=== PATIENT | female | born 1980 | race Caucasian/White ===

== ENCOUNTER 2016-09-11 09:52 | Emergency (ER) | payer MEDICAID ==
[2016-09-11] MEDS ORDERED: Sodium Chloride 0.9% 1000 ML 1,000 ML IV SCH (10:00)
[2016-09-11] MEDS ORDERED: Reglan 10 MG/2 ML IV ONE (10:00)
[2016-09-11] MEDS ORDERED: BENADRYL 50 MG/ML IV ONE (10:00)
[2016-09-11] MEDS ORDERED: TORAdol 30 mg Injection IV ONE (10:00)
--- NOTE | 2016-09-11 10:05 | ERPHSYRPT ---
- History of Present Illness Time Seen by Provider: 09/11/16 09:54 Source: patient Physician History: CC: headache/chest ache Hx: 35 y/o patient has had headache past 2-3 days, better today. She had nausea and photophobia and stayed in a dark room. No N/T/W. CISNEROS some better today. She also has some aching in left chest anterior like a bruise, although had no injury. She was concerned about the chest aching so came to ER. She had C- Section 6 months ago and is bottle feeding. She has high blood pressure and takes lisinopril. No hx of recent travel, [place], injury, stroke, blood clots. Timing/Duration: day(s) (2-3) Severity: moderate Allergies/Adverse Reactions: amoxicillin trihydrate [From Augmentin] Allergy (Severe, Verified 09/11/16 10:07 ) Hives penicillin Allergy (Severe, Verified 09/11/16 10:07) Hives potassium clavulanate [From Augmentin] Allergy (Severe, Verified 09/11/16 10:07) Hives sulfamethoxazole [From Bactrim] Allergy (Severe, Verified 09/11/16 10:07) Hives trimethoprim [From Bactrim] Allergy (Severe, Verified 09/11/16 10:07) Hives Home Medications: Escitalopram Oxalate [Lexapro] 20 mg PO DAILY 09/11/16 [History] Lisinopril 10 mg [Zestril 10 MG] 10 mg PO DAILY 09/11/16 [History] Quetiapine Fumarate [Seroquel] 100 mg PO HS 09/11/16 [History] Hx Tetanus, Diphtheria Vaccination/Date Given: Yes (up to date) Hx Influenza Vaccination/Date Given: No Hx Pneumococcal Vaccination/Date Given: No - Review of Systems Constitutional: No Fever, No Chills Eyes: Photophobia, No Vision Changes Ears, Nose, & Throat: No Symptoms Respiratory: No Symptoms Cardiac: Chest Pain (aching left), No Edema, No Syncope Abdominal/Gastrointestinal: Nausea, No Vomiting Musculoskeletal: No Back Pain, No Neck Pain, No Joint Pain Skin: No Rash Neurological: Headache, No Dizziness, No Focal Weakness, No Parasthesia All Other Systems: Reviewed and Negative - Past Medical History Pertinent Past Medical History: Yes Neurological History: No Pertinent History ENT History: No Pertinent History Cardiac History: No Pertinent History Respiratory History: Asthma Endocrine Medical History: No Pertinent History Musculoskeletal History: No Pertinent History GI Medical History: No Pertinent History History: No Pertinent History Psycho-Social History: No Pertinent History Female Reproductive Disorders: Endometriosis, Other Other Medical History: Polycystic Ovarian syndrome - Past Surgical History Past Surgical History: Yes Neuro Surgical History: No Pertinent History Cardiac: No Pertinent History Respiratory: No Pertinent History Gastrointestinal: No Pertinent History Genitourinary: No Pertinent History Musculoskeletal: No Pertinent History Female Surgical History: No Pertinent History, Section Other Surgical History: Laparoscopy. Ovarian Cyst - Social History Smoking Status: Never smoker Exposure to second hand smoke: No Drug Use: none Patient Lives Alone: No - Nursing Vital Signs Nursing Vital Signs: Initial Vital Signs Temperature 98.0 F Temperature Source Oral Pulse Rate [Right Radial] 80 Pulse Rate 85 Respiratory Rate 20 Blood Pressure [Right Arm] 130/60 Pain Intensity 0 - Physical Exam General Appearance: alert, obese, other (pleasant lady) Eye Exam: PERRL/EOMI Ears, Nose, Throat Exam: normal ENT inspection, moist mucous membranes Neck Exam: normal inspection, non-tender, supple Respiratory Exam: normal breath sounds, lungs clear Cardiovascular Exam: regular rate/rhythm Gastrointestinal/Abdomen Exam: soft, No tenderness, No distention Back Exam: normal inspection Extremity Exam: normal inspection, normal range of motion Neurologic Exam: alert, oriented x 3, cooperative, fireperson II-XII nml as tested, normal mood/affect, nml cerebellar function, sensation nml, No motor deficits Skin Exam: warm, dry, No rash - Course Nursing assessment & vital signs reviewed: Yes EKG Interpreted by Me: RATE (80), Sinus Rhythm, NORMAL AXIS, NORMAL INTERVALS ( QTc 441), NORMAL QRS, NORMAL ST-T - Radiology Exams cxr X-ray Interpretation: Discussed w/ radiologist, Negative Ordered Tests: Active Orders 24 hr Category Date Time Status EKG-ER Only STAT Care 09/11/16 10:00 Active IV Insertion STAT Care 09/11/16 10:00 Active CHEST 2 VIEWS (PA AND LAT) Stat Exams 09/11/16 10:00 Completed CBC W DIFF Stat Lab 09/11/16 10:30 Completed CMP Stat Lab 09/11/16 10:30 Completed D-DIMER QUANTITATION Stat Lab 09/11/16 10:30 Completed HCG QUALITATIVE,SERUM Stat Lab 09/11/16 10:30 Completed TROPONIN Stat Lab 09/11/16 10:30 Completed Medication Summary Generic Name Dose Route Start Last Admin Trade Name Justyn PRN Reason Stop Dose Admin Sodium Chloride 1,000 mls @ 100 mls/hr 09/11/16 10:00 09/11/16 10:14 Sodium Chloride 0.9% 1000 Ml IV 10/11/16 09:59 100 mls/hr .Q10H SHELBIE Administration Discontinued Medications Generic Name Dose Route Start Last Admin Trade Name Justyn PRN Reason Stop Dose Admin Diphenhydramine HCl 25 mg 09/11/16 10:00 09/11/16 10:15 Benadryl 50 Mg/Ml IV 09/11/16 10:01 25 mg STAT ONE Administration Diphenhydramine HCl Confirm 09/11/16 10:12 Benadryl 50 Mg/Ml Administered 09/11/16 10:13 Dose 50 mg .ROUTE .STK-MED ONE Ketorolac Tromethamine 30 mg 09/11/16 10:00 09/11/16 10:17 Toradol 30 Mg Injection IV 09/11/16 10:01 30 mg STAT ONE Administration Ketorolac Tromethamine Confirm 09/11/16 10:12 Toradol 30 Mg Injection Administered 09/11/16 10:13 Dose 30 mg .ROUTE .STK-MED ONE Metoclopramide HCl 10 mg 09/11/16 10:00 09/11/16 10:16 Reglan 10 Mg/2 Ml IV 09/11/16 10:01 10 mg STAT ONE Administration Metoclopramide HCl Confirm 09/11/16 10:12 Reglan 10 Mg/2 Ml Administered 09/11/16 10:13 Dose 10 mg .ROUTE .STK-MED ONE Lab/Rad Data: Laboratory Result Diagrams 09/11/16 10:30 09/11/16 10:30 Laboratory Results 09/11/16 09/11/16 09/11/16 Range/Units 10:30 10:30 10:30 WBC (4.0-10.5) K/mm3 RBC (4.1-5.4) M/mm3 Hgb (12.0-16.0) gm/dl Hct (35-47) % MCV (78-100) fl MCH (26-32) pg MCHC (32-36) g/dl RDW (11.5-14.0) % Plt Count (150-450) K/mm3 MPV (6-9.5) fl Gran % (36.0-66.0) % Lymphocytes % (24.0-44.0) % Monocytes % (0.0-12.0) % Eosinophils % (0.00-5.0) % Basophils % (0.0-0.4) % Basophils # (0-0.4) D-Dimer 242.66 (0.00-500.00) ng/mL Sodium 141 (136-145) mEq/L Potassium 3.9 (3.5-5.1) mEq/L Chloride 106 (98-107) mEq/L Carbon Dioxide 25.3 (21-32) mEq/L Anion Gap 13.8 (5-15) MEQ/L BUN 11 (9-20) mg/dL Creatinine 0.67 (0.55-1.30) mg/dl Estimated GFR > 60 ML/MIN Glucose 121 H (70-110) MG/DL Calcium 8.7 (8.5-10.1) mg/dL Total Bilirubin 0.30 (0.2-1.0) mg/dL AST 29 (15-37) U/L ALT 25 (12-78) U/L Alkaline Phosphatase 48 (46-116) U/L Troponin I < 0.017 (0.000-0.056) ng/ml Serum Total Protein 6.8 (6.4-8.2) gm/dL Albumin 3.1 L (3.4-5.0) g/dL Serum , Qual NEGATIVE (Negative) 09/11/16 Range/Units 10:30 WBC 7.4 (4.0-10.5) K/mm3 RBC 4.48 (4.1-5.4) M/mm3 Hgb 12.6 (12.0-16.0) gm/dl Hct 39.2 (35-47) % MCV 87.5 (78-100) fl MCH 28.1 (26-32) pg MCHC 32.1 (32-36) g/dl RDW 14.4 H (11.5-14.0) % Plt Count 206 (150-450) K/mm3 MPV 9.7 H (6-9.5) fl Gran % 56.1 (36.0-66.0) % Lymphocytes % 31.3 (24.0-44.0) % Monocytes % 6.1 (0.0-12.0) % Eosinophils % 6.1 H (0.00-5.0) % Basophils % 0.4 (0.0-0.4) % Basophils # 0.03 (0-0.4) D-Dimer (0.00-500.00) ng/mL Sodium (136-145) mEq/L Potassium (3.5-5.1) mEq/L Chloride (98-107) mEq/L Carbon Dioxide (21-32) mEq/L Anion Gap (5-15) MEQ/L BUN (9-20) mg/dL Creatinine (0.55-1.30) mg/dl Estimated GFR ML/MIN Glucose (70-110) MG/DL Calcium (8.5-10.1) mg/dL Total Bilirubin (0.2-1.0) mg/dL AST (15-37) U/L ALT (12-78) U/L Alkaline Phosphatase (46-116) U/L Troponin I (0.000-0.056) ng/ml Serum Total Protein (6.4-8.2) gm/dL Albumin (3.4-5.0) g/dL Serum , Qual (Negative) - Progress Progress Note: 09/11/16 11:39 Pt stable. Meds helped headache. She forgot about the chest ache. She is improved. She ambulated in hallway. PERC and d-dimer neg. Low risk Heart Score. Will release to follow up this week with Dr Rodriguez. Counseled pt/family regarding: lab results, diagnosis, need for follow-up, rad results - Departure Time of Disposition: 11:40 Departure Disposition: Home Clinical Impression: Headache, Chest pain Condition: Stable Critical Care Time: No Referrals: MICHEL RODRIGUEZ [Primary Care Provider] - 09/14/16 11:00 am Instructions: Atypical Chest Pain, Headache Additional Instructions: Rest today, sip fluids, no driving. Return for problems or concerns. Follow up with Dr Rodriguez at 11AM Saturday.
[2016-09-11] MEDS ORDERED: BENADRYL 50 MG/ML ONE (10:12)
[2016-09-11] MEDS ORDERED: TORAdol 30 mg Injection ONE (10:12)
[2016-09-11] MEDS ORDERED: Reglan 10 MG/2 ML ONE (10:12)
[2016-09-11] MEDS ORDERED: Sodium Chloride 0.9% 1000 ML 1,000 ML ONE (10:12)
[2016-09-11 10:35] LABS: BASOPHIL % 0.4 % (0.0-0.4); Eosinophil % 6.1 % (0.00-5.0); Granulocytes % 56.1 % (36.0-66.0); Lymphocytes % 31.3 % (24.0-44.0); Mean Cell Volume 87.5 fl (78-100); Mean Corpuscular Hemoglobin 28.1 pg (26-32); Mean Platelet Volume 9.7 fl (6-9.5); Monocytes % 6.1 % (0.0-12.0); Platelet Count 206 K/mm3 (150-450); Red Blood Count 4.48 M/mm3 (4.1-5.4); Red Cell Distribution Width 14.4 % (11.5-14.0); White Blood Count 7.4 K/mm3 (4.0-10.5)
[2016-09-11 11:03] LABS: ALBUMIN 3.1 g/dL (3.4-5.0); ALKALINE PHOSPHATASE 48 U/L (46-116); ANION GAP 13.8 MEQ/L (5-15); BLOOD UREA NITROGEN 11 mg/dL (9-20); CHLORIDE 106 mEq/L (98-107); Carbon Dioxide 25.3 mEq/L (21-32); Glucose 121 MG/DL (70-110); Potassium 3.9 mEq/L (3.5-5.1); SGOT/AST 29 U/L (15-37); SGPT/ALT 25 U/L (12-78); SODIUM 141 mEq/L (136-145); Total Protein 6.8 gm/dL (6.4-8.2)
[2016-09-11 11:04] LABS: TROPONIN < 0.017 ng/ml (0.000-0.056)
--- NOTE | 2016-09-11 11:14 | XRAY ---
Indication: Left sided chest pain. Comparison: November 15, 2015. PA/lateral chest again demonstrates normal heart, lungs, and bony thorax with incidental scattered calcified granulomas.
[2016-09-11 11:48] VITALS: BP 116/69; PULSE 70; O2SAT 100
== END 2016-09-11 11:56 | disposition home or self-care (01) ==
LOC: ED 09:52
DX: R51 Headache (principal); R07.89 Other chest pain
CPT/HCPCS: 36000; 36415; 71020; 80053; 84484; 84703; 85025; 85379; 93005; 93041; 96374; 96375; 99284; J1200; J1885

== ENCOUNTER 2016-09-18 21:40 | Emergency (ER) | payer MEDICAID, OTHER ==
--- NOTE | 2016-09-18 22:14 | ERPHSYRPT ---
- History of Present Illness Time Seen by Provider: 09/18/16 22:13 Source: patient Exam Limitations: no limitations Patient Subjective Stated Complaint: pt states she has vomited twice today and having dry heaves. states the last time she vomitied approx 1 hr ago there was a small amt of bright red blood, denies abd pain. Triage Nursing Assessment: pt alert and oriented, asnwers questions approp. pt ambulatory wtih steady gait noted. respirations nonlabored with lungs cta. abd soft and nontender. bowel sounds present in all 4 quads. Physician History: The patient is a 36-year-old morbidly obese female with a friend complaining that she vomited twice today. She has some abdominal cramping. She does not feel like she is going to vomiting anymore. She denies diarrhea. She denies lightheadedness. Timing/Duration: today Severity: mild Modifying Factors: Improves With: nothing Associated Symptoms: vomiting, No abdominal pain (cramping) Allergies/Adverse Reactions: amoxicillin trihydrate [From Augmentin] Allergy (Severe, Verified 09/18/16 21:54 ) Hives penicillin Allergy (Severe, Verified 09/18/16 21:54) Hives potassium clavulanate [From Augmentin] Allergy (Severe, Verified 09/18/16 21:54) Hives sulfamethoxazole [From Bactrim] Allergy (Severe, Verified 09/18/16 21:54) Hives trimethoprim [From Bactrim] Allergy (Severe, Verified 09/18/16 21:54) Hives Home Medications: Escitalopram Oxalate [Lexapro] 20 mg PO DAILY 09/11/16 [History] Lisinopril 10 mg [Zestril 10 MG] 10 mg PO DAILY 09/11/16 [History] Quetiapine Fumarate [Seroquel] 100 mg PO HS 09/11/16 [History] Cetirizine HCl [Zyrtec] 10 mg PO DAILY 09/18/16 [History] Clonazepam 0.5 mg [Klonopin 0.5 MG] 0.5 mg PO BID 09/18/16 [History] Hx Tetanus, Diphtheria Vaccination/Date Given: Yes (up to date) Hx Influenza Vaccination/Date Given: No Hx Pneumococcal Vaccination/Date Given: No Immunizations Up to Date: Yes - Review of Systems Constitutional: No Fever, No Chills Eyes: No Symptoms Ears, Nose, & Throat: No Symptoms Respiratory: No Cough, No Dyspnea Cardiac: No Chest Pain, No Edema, No Syncope Abdominal/Gastrointestinal: Vomiting Genitourinary Symptoms: No Dysuria Musculoskeletal: No Back Pain, No Neck Pain Skin: No Rash Neurological: No Dizziness, No Focal Weakness, No Sensory Changes Psychological: No Symptoms Endocrine: No Symptoms Hematologic/Lymphatic: No Symptoms Immunological/Allergic: No Symptoms All Other Systems: Reviewed and Negative - Past Medical History Pertinent Past Medical History: Yes Neurological History: No Pertinent History ENT History: No Pertinent History Cardiac History: No Pertinent History Respiratory History: Asthma Endocrine Medical History: No Pertinent History Musculoskeletal History: No Pertinent History GI Medical History: No Pertinent History History: No Pertinent History Psycho-Social History: No Pertinent History Female Reproductive Disorders: Endometriosis, Other Other Medical History: Polycystic Ovarian syndrome - Past Surgical History Past Surgical History: Yes Neuro Surgical History: No Pertinent History Cardiac: No Pertinent History Respiratory: No Pertinent History Gastrointestinal: No Pertinent History Genitourinary: No Pertinent History Musculoskeletal: No Pertinent History Female Surgical History: No Pertinent History, Section Other Surgical History: Laparoscopy. Ovarian Cyst - Social History Smoking Status: Never smoker Exposure to second hand smoke: No Drug Use: none Patient Lives Alone: No - Female History Hx Last Menstrual Period: last month - Nursing Vital Signs Nursing Vital Signs: Initial Vital Signs Temperature 97.9 F Temperature Source Oral Pulse Rate 71 Respiratory Rate 18 Blood Pressure [Right Arm] 131/78 Pain Intensity 0 - Physical Exam General Appearance: no apparent distress, alert Eye Exam: PERRL/EOMI, eyes nml inspection Ears, Nose, Throat Exam: normal ENT inspection, TMs normal, pharynx normal, moist mucous membranes Neck Exam: normal inspection, non-tender, supple, full range of motion Respiratory Exam: normal breath sounds, lungs clear, No respiratory distress Cardiovascular Exam: regular rate/rhythm, normal heart sounds, normal peripheral pulses Gastrointestinal/Abdomen Exam: soft, normal bowel sounds, No tenderness, No mass Pelvic Exam: not done Rectal Exam: not done Back Exam: normal inspection, normal range of motion, No CVA tenderness, No vertebral tenderness Extremity Exam: normal inspection, normal range of motion, pelvis stable Neurologic Exam: alert, oriented x 3, cooperative, normal mood/affect, nml cerebellar function, nml station & gait, sensation nml, No motor deficits Skin Exam: normal color, warm, dry, No rash Lymphatic Exam: No adenopathy SpO2 Interpretation: normal SpO2: 94 Oxygen Delivery: Room Air Ordered Tests: Active Orders 24 hr Category Date Time Status CBC W DIFF Stat Lab 09/18/16 22:45 Completed CMP Stat Lab 09/18/16 22:45 Completed HCG QUALITATIVE,SERUM Stat Lab 09/18/16 22:45 Completed Medication Summary Discontinued Medications Generic Name Dose Route Start Last Admin Trade Name Justyn PRN Reason Stop Dose Admin Ondansetron HCl 4 mg 09/18/16 22:30 09/18/16 22:42 Zofran Odt 4 Mg PO 09/18/16 22:31 4 mg STAT ONE Administration Ondansetron HCl Confirm 09/18/16 22:38 Zofran 4 Mg/2 Ml Vial Administered 09/18/16 22:39 Dose 4 mg .ROUTE .STK-MED ONE Ondansetron HCl Confirm 09/18/16 22:40 Zofran Odt 4 Mg Administered 09/18/16 22:41 Dose 4 mg .ROUTE .STK-MED ONE Lab/Rad Data: Laboratory Result Diagrams 09/18/16 22:45 09/18/16 22:45 Laboratory Results 09/18/16 09/18/16 09/18/16 Range/Units 22:45 22:45 22:45 WBC 9.1 (4.0-10.5) K/mm3 RBC 4.58 (4.1-5.4) M/mm3 Hgb 12.8 (12.0-16.0) gm/dl Hct 40.1 (35-47) % MCV 87.6 (78-100) fl MCH 27.9 (26-32) pg MCHC 31.9 L (32-36) g/dl RDW 14.5 H (11.5-14.0) % Plt Count 228 (150-450) K/mm3 MPV 9.7 H (6-9.5) fl Gran % 56.0 (36.0-66.0) % Lymphocytes % 30.2 (24.0-44.0) % Monocytes % 7.3 (0.0-12.0) % Eosinophils % 6.2 H (0.00-5.0) % Basophils % 0.3 (0.0-0.4) % Basophils # 0.03 (0-0.4) Sodium 141 (136-145) mEq/L Potassium 4.3 (3.5-5.1) mEq/L Chloride 103 (98-107) mEq/L Carbon Dioxide 29.0 (21-32) mEq/L Anion Gap 13.3 (5-15) MEQ/L BUN 12 (9-20) mg/dL Creatinine 0.72 (0.55-1.30) mg/dl Estimated GFR > 60 ML/MIN Glucose 99 (70-110) MG/DL Calcium 9.1 (8.5-10.1) mg/dL Total Bilirubin 0.30 (0.2-1.0) mg/dL AST 23 (15-37) U/L ALT 22 (12-78) U/L Alkaline Phosphatase 62 (46-116) U/L Serum Total Protein 7.3 (6.4-8.2) gm/dL Albumin 3.4 (3.4-5.0) g/dL Serum , Qual NEGATIVE (Negative) - Progress Progress: improved Counseled pt/family regarding: lab results, diagnosis - Departure Time of Disposition: 23:39 Departure Disposition: Home Clinical Impression: Vomiting Condition: Stable Critical Care Time: No Additional Instructions: You had mild episodes of vomiting that we treated in the ER with Zofran 4 mg. Continue to take Zofran 4 mg ODT every 6 hours as needed for vomiting. Stay well hydrated. Begin your diet liquids and advance as tolerated. Follow-up as needed. Prescriptions: Ondansetron [Zofran Odt] 4 mg PO Q6HPRN PRN #10 tab.rapdis PRN Reason: Nausea/Vomiting
[2016-09-18] MEDS ORDERED: ZOFRAN ODT 4 MG PO ONE (22:30)
[2016-09-18] MEDS ORDERED: Zofran 4 MG/2 ML VIAL ONE (22:38)
[2016-09-18] MEDS ORDERED: ZOFRAN ODT 4 MG ONE (22:40)
[2016-09-18 22:47] LABS: BASOPHIL % 0.3 % (0.0-0.4); Eosinophil % 6.2 % (0.00-5.0); Lymphocytes % 30.2 % (24.0-44.0); Mean Cell Volume 87.6 fl (78-100); Mean Corpuscular Hemoglobin 27.9 pg (26-32); Mean Platelet Volume 9.7 fl (6-9.5); Monocytes % 7.3 % (0.0-12.0); Platelet Count 228 K/mm3 (150-450); Red Blood Count 4.58 M/mm3 (4.1-5.4); Red Cell Distribution Width 14.5 % (11.5-14.0); White Blood Count 9.1 K/mm3 (4.0-10.5)
[2016-09-18 23:15] LABS: ALBUMIN 3.4 g/dL (3.4-5.0); ALKALINE PHOSPHATASE 62 U/L (46-116); ANION GAP 13.3 MEQ/L (5-15); BLOOD UREA NITROGEN 12 mg/dL (9-20); CHLORIDE 103 mEq/L (98-107); Glucose 99 MG/DL (70-110); Potassium 4.3 mEq/L (3.5-5.1); SGOT/AST 23 U/L (15-37); SGPT/ALT 22 U/L (12-78); SODIUM 141 mEq/L (136-145); Total Protein 7.3 gm/dL (6.4-8.2)
[2016-09-18 23:53] VITALS: BP 129/87; PULSE 76; O2SAT 99
== END 2016-09-18 23:53 | disposition home or self-care (01) ==
LOC: ED 21:40
DX: R11.10 Vomiting, unspecified (principal)
CPT/HCPCS: 36415; 80053; 84703; 85025; 99283; J2405; Q0162

== ENCOUNTER 2017-11-20 12:07 | Emergency (ER) | payer OTHER ==
--- NOTE | 2017-11-20 12:34 | ERPHSYRPT ---
- History of Present Illness Time Seen by Provider: 11/20/17 12:29 Historian: patient Exam Limitations: no limitations Patient Subjective Stated Complaint: CPx2-3 weeks. was seen here saturday for same Triage Nursing Assessment: alert and oriented in no distress. staets CP x 2-3 weeks. cough today buyt non productive. lungs clear. mid misd sternal. nothing seems to make it better. did have a holter monitor x 24 hours but does not have the results. stopped her adipex on Saturday per MD orders. Physician History: 37-year-old morbidly obese white female arrives with complaint of pain in her anterior chest which is somewhat vague described as sometimes sharp sometimes dull off-and-on for 3 weeks. She states it is sometimes worse when she breathes deeply. She is not coughing. Patient has had a recent workup mild performed by her family doctor also a recent Holter monitor. Patient apparently has had a echo done in the beginning of this year which was essentially normal. Past medical history includes asthma, endometriosis, polycystic ovary syndrome. Past surgical history includes , ovarian cysts. Timing/Duration: other (symptoms off and on for 3 3weeks has been going on since 09:00 this am) Activities at Onset: activity Quality: dullness, sharpness Location: central Severity of Pain-Max: moderate Severity of Pain-Current: mild Associated Symptoms: hurts to breathe, No nausea, No vomiting, No palpitations, No heartburn, No abdominal pain, No shortness of breath, No cough, No diaphoresis, No chills, No fever, No fatigue, No weakness, No swelling/lump in chest, No syncope, No rash, No headache, No dizziness, No edema, No back pain Prior Chest Pain/Cardiac Workup: recently seen/treated (seen by fmd for same has had recent holter monitor) Aspirin Treatment Today: 81 mg x 4, provided by ED Allergies/Adverse Reactions: amoxicillin trihydrate [From Augmentin] Allergy (Severe, Verified 11/20/17 12:33 ) Hives penicillin Allergy (Severe, Verified 11/20/17 12:33) Hives potassium clavulanate [From Augmentin] Allergy (Severe, Verified 11/20/17 12:33) Hives sulfamethoxazole [From Bactrim] Allergy (Severe, Verified 11/20/17 12:33) Hives trimethoprim [From Bactrim] Allergy (Severe, Verified 11/20/17 12:33) Hives Home Medications: Escitalopram Oxalate [Lexapro] 20 mg PO DAILY 09/11/16 [History] Lisinopril 10 mg [Zestril 10 MG] 10 mg PO DAILY 09/11/16 [History] Quetiapine Fumarate [Seroquel] 100 mg PO HS 09/11/16 [History] Cetirizine HCl [Zyrtec] 10 mg PO DAILY 09/18/16 [History] Clonazepam 0.5 mg [Klonopin 0.5 MG] 0.5 mg PO BID 09/18/16 [History] Hx Tetanus, Diphtheria Vaccination/Date Given: Yes (up to date) Hx Influenza Vaccination/Date Given: No Hx Pneumococcal Vaccination/Date Given: No - Review of Systems Constitutional: No Fever, No Chills Eyes: No Symptoms Ears, Nose, & Throat: No Symptoms Respiratory: No Cough, No Dyspnea Cardiac: Chest Pain Abdominal/Gastrointestinal: No Abdominal Pain, No Nausea, No Vomiting, No Diarrhea Genitourinary Symptoms: No Dysuria Musculoskeletal: No Back Pain, No Neck Pain Skin: No Rash Neurological: No Dizziness, No Focal Weakness, No Sensory Changes Psychological: No Symptoms Endocrine: No Symptoms All Other Systems: Reviewed and Negative - Past Medical History Pertinent Past Medical History: Yes Neurological History: No Pertinent History ENT History: No Pertinent History Cardiac History: Hypertension Respiratory History: Asthma, Bronchitis, Pneumonia Endocrine Medical History: No Pertinent History Musculoskeletal History: No Pertinent History GI Medical History: No Pertinent History History: No Pertinent History Psycho-Social History: No Pertinent History Female Reproductive Disorders: Endometriosis, Other Other Medical History: Polycystic Ovarian syndrome - Past Surgical History Past Surgical History: Yes Neuro Surgical History: No Pertinent History Cardiac: No Pertinent History Respiratory: No Pertinent History Gastrointestinal: No Pertinent History Genitourinary: No Pertinent History Musculoskeletal: No Pertinent History Female Surgical History: No Pertinent History, Section Other Surgical History: Laparoscopy. Ovarian Cyst - Social History Smoking Status: Never smoker Exposure to second hand smoke: No Drug Use: none Patient Lives Alone: No - Female History Hx Now: No - Nursing Vital Signs Nursing Vital Signs: Initial Vital Signs Temperature 97.8 F 11/20/17 12:16 Pulse Rate 107 H 11/20/17 12:16 Respiratory Rate 22 11/20/17 12:16 Blood Pressure 134/104 11/20/17 12:16 O2 Sat by Pulse Oximetry 97 11/20/17 12:16 Pain Scale Pain Intensity 2 - Physical Exam General Appearance: no apparent distress, obese Eye Exam: PERRL/EOMI, eyes nml inspection Ears, Nose, Throat Exam: normal ENT inspection, moist mucous membranes Neck Exam: normal inspection, non-tender, supple, full range of motion Respiratory Exam: normal breath sounds, lungs clear, No respiratory distress Cardiovascular Exam: regular rate/rhythm, normal heart sounds Gastrointestinal/Abdomen Exam: soft, No tenderness, No mass Back Exam: normal inspection, No CVA tenderness, No vertebral tenderness Extremity Exam: normal inspection, normal range of motion Neurologic Exam: alert, oriented x 3, cooperative, 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, normal mood/affect, sensation nml, No motor deficits Skin Exam: normal color, warm, dry SpO2 Interpretation: normal (97%) SpO2: 97 Oxygen Delivery: Room Air - Course Nursing assessment & vital signs reviewed: Yes EKG Interpreted by Me: RATE (107 bpm), Sinus Tach, NORMAL AXIS, Other (EKG, sinus arrhythmia, 107 bpm, normal axis,, no acute ST or T wave changes noted.) Ordered Tests: Active Orders 24 hr Category Date Time Status EKG-ER Only STAT Care 11/20/17 12:27 Active IV Insertion STAT Care 11/20/17 12:27 Active AMYLASE Routine Lab 11/20/17 12:40 Completed CBC W DIFF Stat Lab 11/20/17 12:40 Completed CMP Routine Lab 11/20/17 12:40 Completed D-DIMER QUANTITATION Stat Lab 11/20/17 12:40 Completed HCG QUALITATIVE,SERUM Stat Lab 11/20/17 12:40 Completed LIPASE Routine Lab 11/20/17 12:40 Completed TROPONIN Q3H Lab 11/20/17 12:40 Completed TROPONIN Q3H Lab 11/20/17 15:48 Completed TROPONIN Q3H Lab 11/20/17 18:30 Ordered TROPONIN Q3H Lab 11/20/17 21:30 Ordered TROPONIN Q3H Lab 11/21/17 00:30 Ordered Medication Summary Discontinued Medications Generic Name Dose Route Start Last Admin Trade Name Freq PRN Reason Stop Dose Admin Aspirin 324 mg 11/20/17 14:28 11/20/17 14:33 Baby Aspirin 81 Mg Chew PO 11/20/17 14:29 324 mg STAT ONE Administration Lab/Rad Data: Laboratory Result Diagrams 11/20/17 12:40 11/20/17 12:40 Laboratory Results 11/20/17 11/20/17 11/20/17 Range/Units 15:48 12:40 12:40 WBC (4.0-10.5) K/mm3 RBC (4.1-5.4) M/mm3 Hgb (12.0-16.0) gm/dl Hct (35-47) % MCV (78-100) fl MCH (26-32) pg MCHC (32-36) g/dl RDW (11.5-14.0) % Plt Count (150-450) K/mm3 MPV (6-9.5) fl Gran % (36.0-66.0) % Eos # (Auto) (0-0.5) Absolute Lymphs (auto) (1.0-4.6) Absolute Monos (auto) (0.0-1.3) Lymphocytes % (24.0-44.0) % Monocytes % (0.0-12.0) % Eosinophils % (0.00-5.0) % Basophils % (0.0-0.4) % Absolute Granulocytes (1.4-6.9) Basophils # (0-0.4) D-Dimer (215-500) ng/mL Sodium 141 (137-145) mmol/L Potassium 4.3 (3.5-5.1) mmol/L Chloride 103 (98-107) mmol/L Carbon Dioxide 29 (22-30) mmol/L Anion Gap 13.3 (5-15) MEQ/L BUN 11 (7-17) mg/dL Creatinine 0.54 (0.52-1.04) mg/dL Estimated GFR > 60.0 ML/MIN Glucose 113 H (74-106) mg/dL Calcium 9.4 (8.4-10.2) mg/dL Total Bilirubin 0.40 (0.2-1.3) mg/dL AST 46 H (14-36) U/L ALT 34 (0-35) U/L Alkaline Phosphatase 72 (38-126) U/L Troponin I < 0.012 < 0.012 (0.000-0.034) ng/mL Serum Total Protein 7.4 (6.3-8.2) g/dL Albumin 4.2 (3.5-5.0) g/dL Amylase 42 (30-110) U/L Lipase 101 (23-300) U/L Serum , Qual NEGATIVE (Negative) 11/20/17 11/20/17 Range/Units 12:40 12:40 WBC 9.6 (4.0-10.5) K/mm3 RBC 4.93 (4.1-5.4) M/mm3 Hgb 13.9 (12.0-16.0) gm/dl Hct 43.3 (35-47) % MCV 87.8 (78-100) fl MCH 28.2 (26-32) pg MCHC 32.1 (32-36) g/dl RDW 14.9 H (11.5-14.0) % Plt Count 243 (150-450) K/mm3 MPV 9.9 H (6-9.5) fl Gran % 65.5 (36.0-66.0) % Eos # (Auto) 0.40 (0-0.5) Absolute Lymphs (auto) 2.24 (1.0-4.6) Absolute Monos (auto) 0.65 (0.0-1.3) Lymphocytes % 23.3 L (24.0-44.0) % Monocytes % 6.8 (0.0-12.0) % Eosinophils % 4.2 (0.00-5.0) % Basophils % 0.2 (0.0-0.4) % Absolute Granulocytes 6.30 (1.4-6.9) Basophils # 0.02 (0-0.4) D-Dimer 380 (215-500) ng/mL Sodium (137-145) mmol/L Potassium (3.5-5.1) mmol/L Chloride (98-107) mmol/L Carbon Dioxide (22-30) mmol/L Anion Gap (5-15) MEQ/L BUN (7-17) mg/dL Creatinine (0.52-1.04) mg/dL Estimated GFR ML/MIN Glucose (74-106) mg/dL Calcium (8.4-10.2) mg/dL Total Bilirubin (0.2-1.3) mg/dL AST (14-36) U/L ALT (0-35) U/L Alkaline Phosphatase (38-126) U/L Troponin I (0.000-0.034) ng/mL Serum Total Protein (6.3-8.2) g/dL Albumin (3.5-5.0) g/dL Amylase (30-110) U/L Lipase (23-300) U/L Serum , Qual (Negative) - Progress Progress: improved Air Movement: fair Progress Note: 11/20/17 14:37 37-year-old white female who is morbidly obese has a history of asthma, endometriosis, polycystic ovary syndrome. Arrives with complaint of pain in the of anterior chest which has been going on for 3 weeks sometimes worse with deep breathing. She was seen by Dr. Rodriguez on 11/15/2017 she had an EKG labs which include CBC CMP d-dimer troponin she also has recently had a Holter monitor. Patient arrives with complaint that she continues to have pain on arrival patient has an EKG which shows sinus arrhythmia 10 7 bpm normal axis no acute ST or T wave changes are noted patient's d-dimer is within normal limits hCG is negative troponin is within normal limits chemistry is within normal limits with the exception of a mildly elevated glucose. Patient was given aspirin 325 mg orally as soon as hCG was obtained chest x-ray no acute disease processes noted . Patient has been stable here on the monitor . I've discussed the case with Dr. Cueva who is demolition specialist for Dr. Rodriguez Will plan to repeat the patient's troponin 3 hours after last draw . If this is negative will consider discharge with the patient to follow-up with Dr. Rodriguez as an outpatient Dr. Cueva states he will asked to have the patient set up for an outpatient stress test . Will consider giving patient [place] for pain . ................................................. 11/20/17 16:58 Repeat troponin is normal. Will discharge patient patient does not want [place] for pain states she will take Tylenol. - Departure Time of Disposition: 16:58 Departure Disposition: Home Clinical Impression: Chest pain Qualifiers: Chest pain type: unspecified Qualified Code(s): R07.9 - Chest pain, unspecified Condition: Fair Critical Care Time: No Referrals: MICHEL RODRIGUEZ [Primary Care Provider] - Instructions: Chest Pain Additional Instructions: Return home. Rest. Tylenol every 4 hours as needed for pain. Follow-up with your family doctor. Return for acute distress or for severe symptoms.
[2017-11-20 12:42] LABS: BASOPHIL % 0.2 % (0.0-0.4); Basophil (Absolute #) 0.02 (0-0.4); Eosinophil % 4.2 % (0.00-5.0); Granulocytes % 65.5 % (36.0-66.0); Hematocrit 43.3 % (35-47); Hemoglobin 13.9 gm/dl (12.0-16.0); Lymphocyte (Absolute #) 2.24 (1.0-4.6); Lymphocytes % 23.3 % (24.0-44.0); Mean Cell Volume 87.8 fl (78-100); Mean Corpuscular Hemoglobin 28.2 pg (26-32); Mean Corpuscular Hgb Concent. 32.1 g/dl (32-36); Mean Platelet Volume 9.9 fl (6-9.5); Monocyte (Absolute #) 0.65 (0.0-1.3); Monocytes % 6.8 % (0.0-12.0); Platelet Count 243 K/mm3 (150-450); Red Blood Count 4.93 M/mm3 (4.1-5.4); Red Cell Distribution Width 14.9 % (11.5-14.0); White Blood Count 9.6 K/mm3 (4.0-10.5)
[2017-11-20 12:57] LABS: Potassium 4.3 mmol/L (3.5-5.1)
[2017-11-20 13:07] LABS: ALBUMIN 4.2 g/dL (3.5-5.0); ALKALINE PHOSPHATASE 72 U/L (38-126); AMYLASE 42 U/L (30-110); BLOOD UREA NITROGEN 11 mg/dL (7-17); CHLORIDE 103 mmol/L (98-107); Calcium 9.4 mg/dL (8.4-10.2); Carbon Dioxide 29 mmol/L (22-30); Creatinine 1 0.54 mg/dL (0.52-1.04); Glucose 113 mg/dL (74-106); LIPASE 101 U/L (23-300); SGOT/AST 46 U/L (14-36); SGPT/ALT 34 U/L (0-35); SODIUM 141 mmol/L (137-145); TROPONIN < 0.012 ng/mL (0.000-0.034); Total Protein 7.4 g/dL (6.3-8.2)
[2017-11-20 13:08] LABS: ANION GAP 13.3 MEQ/L (5-15)
[2017-11-20] MEDS: BABY ASPIRIN 81 MG CHEW PO ONE (14:33)
[2017-11-20 17:43] VITALS: BP 127/83; PULSE 102
[2017-11-20 17:50] VITALS: O2SAT 97
== END 2017-11-20 17:51 | disposition home or self-care (01) ==
LOC: ED 12:07
DX: R07.9 Chest pain, unspecified (principal); J45.909 Unspecified asthma, uncomplicated; E66.01 Morbid (severe) obesity due to excess calories; N80.9 Endometriosis, unspecified; E28.2 Polycystic ovarian syndrome; I10 Essential (primary) hypertension; Z79.899 Other long term (current) drug therapy
CPT/HCPCS: 36000; 36415; 80053; 82150; 83690; 84484; 84703; 85025; 85379; 93005; 99284; A9270-GY

== ENCOUNTER 2019-09-28 14:35 | Emergency (ER) | payer OTHER ==
[2019-09-28] MEDS ORDERED: Sodium Chloride 0.9% 1000 ML 1,000 ML IV STA (15:21)
--- NOTE | 2019-09-28 15:24 | ERPHSYRPT ---
- History of Present Illness Time Seen by Provider: 09/28/19 14:50 Source: patient Exam Limitations: no limitations Patient Subjective Stated Complaint: head feels "glitchy" Triage Nursing Assessment: pt to ED c/o "head feels glitchy." denies pain. states if she looks quickly in directions it can trigger a glitchy feeling. denies seizure or CVA hx. GSC 15, NIHSS 0. A&Ox4. pt states "very sleepy, very tired, faint, dizzy, anxious." lung sounds clear, heart sounds clear, ambulatory without assistance. Physician History: Patient is a 38-year-old female presents to our ED for evaluation of multiple complaints. Patient states her head feels "glitchy" patient states she feels more tired than usual. She feels somewhat faint and dizzy. Symptoms started Saturday and have been intermittent. Patient denies pain. No headache. No trauma. No fevers. No nausea or vomiting. No numbness tingling or weakness. Patient denies shortness of breath. Patient's complaints are very nonspecific. No heart palpitations. No nausea or vomiting. No diarrhea. No rash. Patient voices no other complaints. Timing/Duration: day(s) (Symptoms started 2 days ago.) Severity: mild Modifying Factors: Improves With: movement. Worsens With: cold therapy, medication, acetaminophen Associated Symptoms: denies symptoms Allergies/Adverse Reactions: amoxicillin trihydrate [From Augmentin] Allergy (Severe, Verified 09/28/19 15:11) Hives penicillin Allergy (Severe, Verified 09/28/19 15:11) Hives potassium clavulanate [From Augmentin] Allergy (Severe, Verified 09/28/19 15:11) Hives sulfamethoxazole [From Bactrim] Allergy (Severe, Verified 09/28/19 15:11) Hives trimethoprim [From Bactrim] Allergy (Severe, Verified 09/28/19 15:11) Hives Home Medications: Clonazepam 0.5 mg [Klonopin 0.5 MG] 0.5 mg PO BID 09/18/16 [History] Baclofen 10 mg [Lioresal 10 mg] 10 mg PO HS 09/28/19 [History] Bupropion HCl [Bupropion HCl Sr] 200 mg PO DAILY 09/28/19 [History] Losartan Potassium 25 mg PO DAILY 09/28/19 [History] Metformin HCl 500 mg [Glucophage 500 MG] 500 mg PO DAILY 09/28/19 [History] Naltrexone HCl 3 gm MC DAILY 09/28/19 [History] Simvastatin 20Mg [Zocor 20Mg] 20 mg PO DAILY 09/28/19 [History] Vilazodone HCl [Viibryd] 40 mg PO DAILY 09/28/19 [History] l-Norgest/E.estradiol-E.estrad [Simpesse 0.15-0.03-0.01 mg Tab] 1 each PO DAILY 09/28/19 [History] Hx Tetanus, Diphtheria Vaccination/Date Given: Yes (up to date) Hx Influenza Vaccination/Date Given: No Hx Pneumococcal Vaccination/Date Given: No Travel Risk - International Travel Have you traveled outside of the country in past 3 weeks: No - Coronavirus Screening Are you exhibiting any of the following symptoms?: No Close contact with a COVID-19 positive Pt in past 14-21 Days: No - Review of Systems Constitutional: No Symptoms, No Fever, No Chills Eyes: No Symptoms Ears, Nose, & Throat: No Symptoms Respiratory: No Symptoms, No Cough, No Dyspnea Cardiac: No Symptoms, No Chest Pain, No Edema, No Syncope Abdominal/Gastrointestinal: No Symptoms, No Abdominal Pain, No Nausea, No Vomiting, No Diarrhea Genitourinary Symptoms: No Symptoms, No Dysuria Musculoskeletal: No Symptoms, No Back Pain, No Neck Pain Skin: No Symptoms, No Rash Neurological: No Symptoms, No Dizziness, No Focal Weakness, No Sensory Changes Psychological: No Symptoms Endocrine: No Symptoms Hematologic/Lymphatic: No Symptoms All Other Systems: Reviewed and Negative - Past Medical History Pertinent Past Medical History: Yes Neurological History: Peripheral Neuropathy ENT History: No Pertinent History Cardiac History: High Cholesterol, Hypertension Respiratory History: Asthma, Pneumonia Endocrine Medical History: Diabetes Type II Musculoskeletal History: No Pertinent History GI Medical History: No Pertinent History History: No Pertinent History Psycho-Social History: No Pertinent History Female Reproductive Disorders: Endometriosis, Other Other Medical History: Polycystic Ovarian syndrome - Past Surgical History Past Surgical History: Yes Neuro Surgical History: No Pertinent History Cardiac: No Pertinent History Respiratory: No Pertinent History Gastrointestinal: No Pertinent History Genitourinary: No Pertinent History Musculoskeletal: No Pertinent History Female Surgical History: No Pertinent History, Section Other Surgical History: Laparoscopy. Ovarian Cyst. carpal tunnel release - Social History Smoking Status: Never smoker Exposure to second hand smoke: No Drug Use: none Patient Lives Alone: No - Female History Hx Now: No - Nursing Vital Signs Nursing Vital Signs: Initial Vital Signs Temperature 98.3 F 09/28/19 14:42 Pulse Rate 98 H 09/28/19 14:42 Respiratory Rate 18 09/28/19 14:42 Blood Pressure 108/60 09/28/19 14:42 O2 Sat by Pulse Oximetry 95 09/28/19 14:42 Pain Scale Pain Intensity 4 - Physical Exam General Appearance: no apparent distress, alert Eye Exam: PERRL/EOMI, eyes nml inspection Ears, Nose, Throat Exam: normal ENT inspection, TMs normal, pharynx normal, moist mucous membranes Neck Exam: normal inspection, non-tender, supple, full range of motion Respiratory Exam: normal breath sounds, lungs clear, No respiratory distress Cardiovascular Exam: regular rate/rhythm, normal heart sounds, normal peripheral pulses Gastrointestinal/Abdomen Exam: soft, normal bowel sounds, No tenderness, No mass Back Exam: normal inspection, normal range of motion, No CVA tenderness, No vertebral tenderness Extremity Exam: normal inspection, normal range of motion, pelvis stable Neurologic Exam: alert, oriented x 3, cooperative, normal mood/affect, nml cerebellar function, nml station & gait, sensation nml, No motor deficits Skin Exam: normal color, warm, dry, No rash Lymphatic Exam: No adenopathy SpO2 Interpretation: normal SpO2: 95 O2 Delivery: Room Air - Course Nursing assessment & vital signs reviewed: Yes EKG Interpreted by Me: RATE (86), Sinus Rhythm, NORMAL AXIS, NORMAL INTERVALS Ordered Tests: Active Orders 24 hr Category Date Time Status EKG-ER Only STAT Care 09/28/19 15:21 Active IV Insertion STAT Care 09/28/19 15:21 Active CBC W DIFF Stat Lab 09/28/19 15:30 Completed CMP Stat Lab 09/28/19 15:30 Completed CULTURE,URINE Stat Lab 09/28/19 16:10 Received TROPONIN Q3H Lab 09/28/19 15:30 Completed TROPONIN Q3H Lab 09/28/19 19:00 Received TROPONIN Q3H Lab 09/28/19 21:30 Ordered TROPONIN Q3H Lab 09/29/19 00:30 Ordered TROPONIN Q3H Lab 09/29/19 03:30 Ordered TSH, 3RD Generation Stat Lab 09/28/19 Completed UA W/RFX UR CULTURE Stat Lab 09/28/19 16:10 Completed Medication Summary Discontinued Medications Generic Name Dose Route Start Last Admin Trade Name Justyn PRN Reason Stop Dose Admin Sodium Chloride 1,000 mls @ 999 mls/hr 09/28/19 15:21 09/28/19 16:50 Sodium Chloride 0.9% 1000 Ml IV 09/28/19 16:21 Infused .Q1H1M STA Infusion Sodium Chloride Confirm 09/28/19 15:32 Sodium Chloride 0.9% 1000 Ml Administered 09/28/19 15:33 Dose 1,000 mls @ ud .ROUTE .STK-MED ONE Lab/Rad Data: Laboratory Result Diagrams 09/28/19 15:30 09/28/19 15:30 Laboratory Results 09/28/19 09/28/19 09/28/19 Range/Units Unknown 16:10 15:30 WBC (4.0-10.5) K/mm3 RBC (4.1-5.4) M/mm3 Hgb (12.0-16.0) gm/dl Hct (35-47) % MCV (78-100) fl MCH (26-32) pg MCHC (32-36) g/dl RDW (11.5-14.0) % Plt Count (150-450) K/mm3 MPV (7.5-11.0) fl Gran % (36.0-66.0) % Eos # (Auto) (0-0.5) Absolute Lymphs (auto) (1.0-4.6) Absolute Monos (auto) (0.0-1.3) Lymphocytes % (24.0-44.0) % Monocytes % (0.0-12.0) % Eosinophils % (0.00-5.0) % Basophils % (0.0-0.4) % Absolute Granulocytes (1.4-6.9) Basophils # (0-0.4) Sodium (137-145) mmol/L Potassium (3.5-5.1) mmol/L Chloride (98-107) mmol/L Carbon Dioxide (22-30) mmol/L Anion Gap (5-15) MEQ/L BUN (7-17) mg/dL Creatinine (0.52-1.04) mg/dL Estimated GFR ML/MIN Glucose (74-106) mg/dL Calcium (8.4-10.2) mg/dL Total Bilirubin (0.2-1.3) mg/dL AST (14-36) U/L ALT (0-35) U/L Alkaline Phosphatase (38-126) U/L Troponin I < 0.012 (0.000-0.034) ng/mL Serum Total Protein (6.3-8.2) g/dL Albumin (3.5-5.0) g/dL TSH 3rd Generation 4.300 (0.47-4.68) mIU/L Urine Color YELLOW (YELLOW) Urine Appearance SLIGHTLY CLOUDY (CLEAR) Urine pH 6.0 (5-6) Ur Specific [place] 1.018 (1.005-1.025) Urine Protein NEGATIVE (Negative) Urine Ketones NEGATIVE (NEGATIVE) Urine Blood NEGATIVE (0-5) Stephen/ul Urine Nitrite NEGATIVE (NEGATIVE) Urine Bilirubin NEGATIVE (NEGATIVE) Urine Urobilinogen NEGATIVE (0-1) mg/dL Ur Leukocyte Esterase NEGATIVE (NEGATIVE) Urine WBC (Auto) 3-5 (0-5) /HPF Urine RBC (Auto) 3-5 (0-2) /HPF U Epithel Cells (Auto) FEW (FEW) /HPF Urine Bacteria (Auto) MODERATE (NEGATIVE) /HPF Urine Mucus (Auto) MODERATE (NEGATIVE) /HPF Urine Culture Reflexed YES (NO) Urine Glucose NEGATIVE (NEGATIVE) mg/dL 09/28/19 09/28/19 Range/Units 15:30 15:30 WBC 8.8 (4.0-10.5) K/mm3 RBC 5.04 (4.1-5.4) M/mm3 Hgb 14.5 (12.0-16.0) gm/dl Hct 45.2 (35-47) % MCV 89.7 (78-100) fl MCH 28.8 (26-32) pg MCHC 32.1 (32-36) g/dl RDW 14.3 H (11.5-14.0) % Plt Count 266 (150-450) K/mm3 MPV 10.1 (7.5-11.0) fl Gran % 50.6 (36.0-66.0) % Eos # (Auto) 0.45 (0-0.5) Absolute Lymphs (auto) 3.15 (1.0-4.6) Absolute Monos (auto) 0.72 (0.0-1.3) Lymphocytes % 35.8 (24.0-44.0) % Monocytes % 8.2 (0.0-12.0) % Eosinophils % 5.1 H (0.00-5.0) % Basophils % 0.3 (0.0-0.4) % Absolute Granulocytes 4.45 (1.4-6.9) Basophils # 0.03 (0-0.4) Sodium 139 (137-145) mmol/L Potassium 4.0 (3.5-5.1) mmol/L Chloride 104 (98-107) mmol/L Carbon Dioxide 26 (22-30) mmol/L Anion Gap 13.6 (5-15) MEQ/L BUN 9 (7-17) mg/dL Creatinine 0.59 (0.52-1.04) mg/dL Estimated GFR > 60.0 ML/MIN Glucose 109 H (74-106) mg/dL Calcium 9.5 (8.4-10.2) mg/dL Total Bilirubin 0.70 (0.2-1.3) mg/dL AST 33 (14-36) U/L ALT 29 (0-35) U/L Alkaline Phosphatase 54 (38-126) U/L Troponin I (0.000-0.034) ng/mL Serum Total Protein 7.6 (6.3-8.2) g/dL Albumin 4.2 (3.5-5.0) g/dL TSH 3rd Generation (0.47-4.68) mIU/L Urine Color (YELLOW) Urine Appearance (CLEAR) Urine pH (5-6) Ur Specific [place] (1.005-1.025) Urine Protein (Negative) Urine Ketones (NEGATIVE) Urine Blood (0-5) Stephen/ul Urine Nitrite (NEGATIVE) Urine Bilirubin (NEGATIVE) Urine Urobilinogen (0-1) mg/dL Ur Leukocyte Esterase (NEGATIVE) Urine WBC (Auto) (0-5) /HPF Urine RBC (Auto) (0-2) /HPF U Epithel Cells (Auto) (FEW) /HPF Urine Bacteria (Auto) (NEGATIVE) /HPF Urine Mucus (Auto) (NEGATIVE) /HPF Urine Culture Reflexed (NO) Urine Glucose (NEGATIVE) mg/dL - Progress Progress: improved Progress Note: 09/28/19 19:[address] Low. Work-up essentially negative at this time. Patient states she feels well. Patient symptoms may be related to polypharmacy. We will advised patient to stay overnight for observation and to sort out her medications but she declined. Patient states she prefers to go home and follow- up with Dr. Rodriguez as an outpatient. Troponin negative x2. Will discharge patient home per her request. Discussed with DrAramis: Ananth Will see patient in: office Counseled pt/family regarding: lab results, diagnosis, need for follow-up, rad results - Departure Departure Disposition: Home Clinical Impression: Polypharmacy Condition: Stable Critical Care Time: No Referrals: MICHEL RODRIGUEZ [Primary Care Provider] - Additional Instructions: Discharge/Care Plan MAGDY CHIN was seen on 09/28/19 in the Emergency Room. The patient was counseled regarding Diagnosis,Lab results, Imaging studies, need for follow up and when to return to the Emergency Room. Prescriptions given: Discharge Note I have spoken with the patient and/or caregivers. I have explained the patient's condition, diagnosis and treatment plan based on the information available to me at this time. I have answered the patient's and/or caregiver's questions and addressed any concerns. The patient and/or caregivers have as good understanding of the patient's diagnosis, condition and treatment plan as can be expected at this point. The vital signs have been stable. The patient's condition is stable and appropriate for discharge from the emergency department. The patient will pursue further outpatient evaluation with the primary care physician or other designated or consulting physician as outlined in the discharge instructions. The patient and/or caregivers are agreeable to this plan of care and follow-up instructions have been explained in detail. The patient and/or caregivers have received these instruction. The patient/and or caregivers are aware that any significant change in condition or worsening of symptoms sh ould prompt an immediate return to this or the closest emergency department or call 911.
[2019-09-28] MEDS ORDERED: Sodium Chloride 0.9% 1000 ML 1,000 ML ONE (15:32)
[2019-09-28 15:39] LABS: Absolute Neutrophil Ct (ANC) 4.45 (1.4-6.9); BASOPHIL % 0.3 % (0.0-0.4); Basophil (Absolute #) 0.03 (0-0.4); Eosinophil % 5.1 % (0.00-5.0); Eosinophil (Absolute #) 0.45 (0-0.5); Hematocrit 45.2 % (35-47); Hemoglobin 14.5 gm/dl (12.0-16.0); Lymphocyte (Absolute #) 3.15 (1.0-4.6); Lymphocytes % 35.8 % (24.0-44.0); Mean Cell Volume 89.7 fl (78-100); Mean Corpuscular Hemoglobin 28.8 pg (26-32); Mean Corpuscular Hgb Concent. 32.1 g/dl (32-36); Mean Platelet Volume 10.1 fl (7.5-11.0); Monocyte (Absolute #) 0.72 (0.0-1.3); Monocytes % 8.2 % (0.0-12.0); Neutrophil % 50.6 % (36.0-66.0); Platelet Count 266 K/mm3 (150-450); Red Blood Count 5.04 M/mm3 (4.1-5.4); Red Cell Distribution Width 14.3 % (11.5-14.0); White Blood Count 8.8 K/mm3 (4.0-10.5)
[2019-09-28 16:38] LABS: ALBUMIN 4.2 g/dL (3.5-5.0); ALKALINE PHOSPHATASE 54 U/L (38-126); ANION GAP 13.6 MEQ/L (5-15); BLOOD UREA NITROGEN 9 mg/dL (7-17); CHLORIDE 104 mmol/L (98-107); Calcium 9.5 mg/dL (8.4-10.2); Carbon Dioxide 26 mmol/L (22-30); Creatinine 1 0.59 mg/dL (0.52-1.04); Glucose 109 mg/dL (74-106); SGOT/AST 33 U/L (14-36); SGPT/ALT 29 U/L (0-35); SODIUM 139 mmol/L (137-145); Total Protein 7.6 g/dL (6.3-8.2)
[2019-09-28 17:44] LABS: Appearance SLIGHTLY CLOUDY (CLEAR); Bacteria MODERATE /HPF (NEGATIVE); Bilirubin NEGATIVE (NEGATIVE); Blood NEGATIVE Ery/ul (0-5); Epithelial Cells FEW /HPF (FEW); Glucose NEGATIVE (NEGATIVE); Ketones NEGATIVE (NEGATIVE); Leukocyte Esterase NEGATIVE (NEGATIVE); Mucus MODERATE /HPF (NEGATIVE); Nitrite NEGATIVE (NEGATIVE); Protein,Urine Dip NEGATIVE (Negative); Specific Gravity 1.018 (1.005-1.025); Urobilinogen NEGATIVE mg/dL (0-1)
[2019-09-28 18:06] VITALS: BP 134/91; PULSE 86
[2019-09-28 19:25] VITALS: O2SAT 95
== END 2019-09-28 19:48 | disposition home or self-care (01) ==
LOC: ED 14:35
DX: T88.7XXA Unspecified adverse effect of drug or medicament, initial encounter (principal); R53.83 Other fatigue; R42 Dizziness and giddiness; Z79.899 Other long term (current) drug therapy; E78.00 Pure hypercholesterolemia, unspecified; I10 Essential (primary) hypertension; E11.9 Type 2 diabetes mellitus without complications
CPT/HCPCS: 36000; 36415; 80053; 81001; 84443; 84484; 85025; 87086; 93005; 96360; 99284

== ENCOUNTER 2023-08-21 11:24 | Day surgery (SDC) | payer OTHER ==
[2023-08-21] MEDS ORDERED: Depo-Medrol 40 MG/ML IM ONE (11:25)
[2023-08-21] MEDS ORDERED: BUPIVACAINE 0.5% VIAL IJ ONE (11:25)
[2023-08-21 12:18] LABS: HCG URINE TEST NEGATIVE (NEGATIVE)
[2023-08-21] MEDS ORDERED: Versed 2 MG/2 ML Injection ONE (12:50)
[2023-08-21] MEDS ORDERED: Lactated Ringers 1,000 ML IV ONE (13:16)
[2023-08-21] MEDS ORDERED: DIPRIVAN 200 MG/20 ML IV ONE (13:26)
--- NOTE | 2023-08-21 15:27 | XRAY ---
Indication: Bilateral SI joint injection. Intraoperative fluoroscopy provided for 20 seconds. 2 digital spot images submitted for interpretation demonstrates posterior needle tip projecting over the expected left and right SI joint. Small amount of contrast injected for needle tip placement. Correlate with intraoperative findings/report.
--- NOTE | 2023-08-21 15:35 | XRAY ---
20 seconds of fluoroscopy was used in surgery for a bilateral sacroiliac joint injection.
== END 2023-08-21 14:00 | disposition home or self-care (01) ==
LOC: SDC-PAIN 11:24
PROVIDERS: ATTEND Psychiatry & Neurology Pain Medicine
DX: M46.1 Sacroiliitis, not elsewhere classified (principal)
CPT/HCPCS: 01992; 27096; 72202; 77002; 81025; G0260; J1010; J2250; J2704; Q9966

== ENCOUNTER 2024-04-08 11:50 | Day surgery (SDC) | payer OTHER ==
[2024-04-08] MEDS ORDERED: Depo-Medrol 40 MG/ML IM ONE (11:51)
[2024-04-08] MEDS ORDERED: BUPIVACAINE 0.5% VIAL IJ ONE (11:51)
[2024-04-08 12:53] LABS: HCG URINE TEST NEGATIVE (NEGATIVE)
[2024-04-08] MEDS ORDERED: Versed 2 MG/2 ML Injection ONE (13:04)
[2024-04-08] MEDS ORDERED: propofoL IV ONE (13:55)
--- NOTE | 2024-04-08 14:55 | XRAY ---
Indication: Bilateral SI joint injection. Intraoperative fluoroscopy provided for 24 seconds. 2 digital spot images submitted for interpretation demonstrates posterior needle tips projecting over left and right SI joints. Small amount of contrast injected for needle tip placement. Correlate with intraoperative findings/report.
--- NOTE | 2024-04-08 14:59 | XRAY ---
24 seconds of fluoroscopy was used in surgery for a bilateral sacroiliac joint injection.
== END 2024-04-08 14:23 | disposition home or self-care (01) ==
LOC: SDC-PAIN 11:50
PROVIDERS: ATTEND Psychiatry & Neurology Pain Medicine
DX: M46.1 Sacroiliitis, not elsewhere classified (principal)
CPT/HCPCS: 27096; 72202; 77002; 81025; J2250; J2704; Q9966

== ENCOUNTER 2024-11-29 17:07 | Emergency (ER) | payer OTHER ==
[2024-11-29 17:34] VITALS: TEMP 97.3
--- NOTE | 2024-11-29 17:46 | ERPHSYRPT ---
- History of Present Illness Time Seen by Provider: 11/29/24 17:46 Source: patient Exam Limitations: no limitations Patient Subjective Stated Complaint: pt here for lower back pain and fever, she states she went to clinic yesterday and was given a steriod and toradol. Triage Nursing Assessment: pt alert, walked in, appears in pain. Physician History: Patient has hx of chronic back pain with previous lumbar surgery and has had an exacerbation of her back pain over the past several days. She was seen at urgent care yesterday and was given IM steroid and Toradol which provided some relief. Patient no reporting fever at home and a draining abscess on the mons pubis with dysuria and increased frequency. No neurologic weakness, lethargy, seizures, numbness or tingling. 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 Associated Symptoms: No abdominal pain, No chest pain, No confusion, No cough, No nausea/vomiting, No shortness of breath, No sore throat, No stiff neck, No weakness Allergies/Adverse Reactions: amoxicillin trihydrate [From Augmentin] Allergy (Severe, Verified 11/29/24 17:27) Hives bupropion [From Wellbutrin] Allergy (Severe, Verified 11/29/24 17:27) Hives penicillin Allergy (Severe, Verified 11/29/24 17:27) Hives potassium clavulanate [From Augmentin] Allergy (Severe, Verified 11/29/24 17:27) Hives sulfamethoxazole [From Bactrim] Allergy (Severe, Verified 11/29/24 17:27) Hives trimethoprim [From Bactrim] Allergy (Severe, Verified 11/29/24 17:27) Hives doxepin Allergy (Mild, Verified 11/29/24 17:27) Hives meloxicam Allergy (Mild, Verified 11/29/24 17:27) Hives Penicillins Allergy (Mild, Verified 11/29/24 17:27) Hives Sulfa (Sulfonamide Antibiotics) Allergy (Verified 11/29/24 17:27) Hives Home Medications: Baclofen 10 mg [Lioresal 10 mg] 10 mg PO HS 09/28/19 [History] Albuterol Sulfate [Albuterol Sulfate Hfa] 8.5 gm IH Q4HPRN PRN 08/17/24 [History] Buspirone HCl [Bucapsol] 15 mg PO TID 08/17/24 [History] Dextroamphetamine Sulfate 1 tab PO DAILY 08/17/24 [History] Dextroamphetamine/Amphetamine [Dextroamp-Amphetamine 5 mg Tab] 1 tab PO DAILY 08/17/24 [History] Duloxetine HCl 1 tab PO DAILY 08/17/24 [History] Ergocalciferol (Vitamin D2) [Vitamin D2] 1 tab PO WEEKLY 08/17/24 [History] Folic Acid 0.8 mg PO DAILY 08/17/24 [History] Folic Acid/Vit B Complex and C [Super B Complex Tablet] 1 tab PO DAILY 08/17/24 [History] Levothyroxine Sodium 50 Mcg [Synthroid 50 Mcg] 1 tab PO DAILY 08/17/24 [History] Magnesium 1 tab PO DAILY 08/17/24 [History] Montelukast Sodium 10 mg [Singulair 10 MG] 1 tab PO DAILY 08/17/24 [History] Spironolactone 1 tab PO BID 08/17/24 [History] Tramadol HCl 50 mg [Ultram 50 mg] 1 tab PO TID 08/17/24 [History] Trazodone HCl 100 mg PO HS 08/17/24 [History] minoxidiL [Minoxidil] 2 tab PO BID 08/17/24 [History] Hx Tetanus, Diphtheria Vaccination/Date Given: Yes (up to date) Hx Influenza Vaccination/Date Given: No Hx Pneumococcal Vaccination/Date Given: No Immunizations Up to Date: Yes Travel Risk - International Travel Have you traveled outside of the country in past 3 weeks: No - Emerging Infectious Disease Are you exhibiting symptoms associated with any current EIDs: No - Review of Systems All Other Systems: Reviewed and Negative - Past Medical History Pertinent Past Medical History: Yes Neurological History: Migraines ENT History: No Pertinent History Cardiac History: Hypertension Respiratory History: Asthma, Pneumonia, Sleep Apnea Endocrine Medical History: Diabetes Type II Musculoskeletal History: Degenerative Disk Disease, Fibromyalgia GI Medical History: No Pertinent History History: No Pertinent History Psycho-Social History: Anxiety, Attention Deficit Disorder, Panic Disorder Female Reproductive Disorders: Endometriosis, Other Other Medical History: DECOMPRESSIVE LAMINECTOMY 2019 IN LUMBAR REGION - NOT SURE OF LEVEL. PATIENT REPORTS SHE STILL FEELS WEAK IN HER LEFT LEG. - Past Surgical History Past Surgical History: Yes Neuro Surgical History: No Pertinent History Cardiac: No Pertinent History Respiratory: No Pertinent History Gastrointestinal: No Pertinent History Genitourinary: No Pertinent History Musculoskeletal: No Pertinent History Female Surgical History: Section Other Surgical History: Laparoscopy. Ovarian Cyst. carpal tunnel release Left. Laminectomy. Right foot.left foot - Female History Hx Last Menstrual Period: september Hx Now: No - Social History Smoking Status: Never smoker Exposure to second hand smoke: No Drug Use: none - Social Determinants of Health Will the patient participate in the screening: Declined to provide - Nursing Vital Signs Nursing Vital Signs: Initial Vital Signs Respiratory Rate 18 11/29/24 17:26 O2 Sat by Pulse Oximetry 88 L 11/29/24 17:26 Pain Scale Pain Intensity 4 - Physical Exam General Appearance: no apparent distress, obese Eye Exam: PERRL/EOMI, eyes nml inspection ENT Exam: normal ENT inspection, TMs normal, pharynx normal Neck Exam: normal inspection, non-tender, supple, full range of motion Respiratory Exam: normal breath sounds, lungs clear, no respiratory distress, no accessory muscle use Cardiovascular/Chest Exam: normal heart sounds, regular rate/rhythm Gastrointestinal/Abdominal Exam: soft, no distention, no guarding, tenderness (suprapubic) Neurologic Exam: alert, oriented x 3, cooperative, anesthesia assistant II-XII nml as tested, normal mood/affect, nml cerebellar function, nml station & gait, sensation nml Skin Exam: other (draining abscess right mons pubis, minimal surrounding erythema) SpO2 Interpretation: normal SpO2: 99 O2 Delivery: Room Air Comments: BACK Vertebral TTP over lumbar Paraspinal TTP over lumbar region SLR neg Slump neg FADY neg FADIR neg Sensation intact Strength wnl - Course Nursing assessment & vital signs reviewed: Yes Ordered Tests: Medication Summary Discontinued Medications Generic Name Dose Route Start Last Admin Trade Name Freq PRN Reason Stop Dose Admin Hydrocodone Bitart/Acetaminophen 1 tab 11/29/24 17:47 11/29/24 18:01 Hydrocodone/Apap 5/325 1 Tab Tablet PO 11/29/24 17:48 1 tab STAT ONE Administration Hydrocodone Bitart/Acetaminophen Confirm 11/29/24 17:59 Hydrocodone/Apap 5/325 1 Tab Tablet Administered 11/29/24 18:00 Dose 1 tab .ROUTE .[facility] ONE Cephalexin HCl 500 mg 11/29/24 17:47 11/29/24 18:00 Cephalexin Mh500 Mg Capsule PO 11/29/24 17:48 500 mg STAT ONE Administration Cephalexin HCl Confirm 11/29/24 17:59 Cephalexin Mh500 Mg Capsule Administered 11/29/24 18:00 Dose 500 mg .ROUTE .[facility] ONE Cyclobenzaprine HCl 10 mg 11/29/24 17:47 11/29/24 18:01 Cyclobenzaprine Hcl 10 Mg Tablet PO 11/29/24 17:48 10 mg STAT ONE Administration Cyclobenzaprine HCl Confirm 11/29/24 17:59 Cyclobenzaprine Hcl 10 Mg Tablet Administered 11/29/24 18:00 Dose [address] .[address] .[facility] ONE Lab/Rad Data: Laboratory Result Diagrams 11/29/24 17:54 11/29/24 17:54 Laboratory Results 11/29/24 11/29/24 11/29/24 Range/Units 18:20 17:54 17:54 WBC 19.4 H (3.98-10.04) x10^3/uL RBC 4.84 (3.93-5.22) x10^6/uL Hgb 13.6 (11.2-15.7) g/dL Hct 42.2 (34.1-44.9) % MCV 87.2 (79.4-94.8) fL MCH 28.1 (25.6-32.2) pg MCHC 32.2 (32.2-35.5) g/dL RDW 13.4 (11.7-14.4) % Plt Count 391 H (182-369) x10^3/uL MPV 9.9 (9.4-12.3) fL Gran % 76.3 H (34.0-71.1) % Immature Gran % (Auto) 0.5 H (0.001-0.429) % Nucleat RBC Rel Count 0.0 (0.00-0.2) % Eos # (Auto) 0.06 (0.04-0.36) x10^3/uL Immature Gran # (Auto) 0.09 H (0.001-0.031) x10^3u/L Absolute Lymphs (auto) 2.84 (1.18-3.74) x10^3/uL Absolute Monos (auto) 1.56 H (0.24-0.86) x10^3/uL Absolute Nucleated RBC 0.00 (0.00-0.012) x10^3u/L Lymphocytes % 14.6 L (19.3-51.7) % Monocytes % 8.0 (4.7-12.5) % Eosinophils % 0.3 L (0.7-5.8) % Basophils % 0.3 (0.1-1.2) % Absolute Granulocytes 14.81 H (1.56-6.13) x10^3/uL Basophils # 0.06 (0.01-0.08) x10^3/uL Sodium 137 (135-145) mmol/L Potassium 4.1 (3.5-5.1) mmol/L Chloride 101 (98-107) mmol/L Carbon Dioxide 24 (22-30) mmol/L Anion Gap 15.2 H (5-15) MEQ/L BUN 19 H (7-17) mg/dL Creatinine 0.78 (0.52-1.04) mg/dL Estimated GFR 96.6 ML/MIN Glucose 128 H (74-106) mg/dL Lactic Acid (0.4-2.0) Calcium 9.6 (8.4-10.2) mg/dL Total Bilirubin 0.20 (0.2-1.3) mg/dL AST 26 (14-36) U/L ALT 25 (0-35) U/L Alkaline Phosphatase 74 (38-126) U/L Serum Total Protein 7.8 (6.3-8.2) g/dL Albumin 4.3 (3.5-5.0) g/dL Urine Color Yellow (Yellow) Urine Appearance Clear (Clear) Urine pH 6.0 (4.6-8.0) Ur Specific [place] 1.020 (1.005-1.030) Urine Protein Negative (Negative) Urine Glucose (UA) Negative (Negative) mg/dL Urine Ketones Negative (Negative) Urine Blood Small A (Negative) Urine Nitrite Negative (Negative) Urine Bilirubin Negative (Negative) Urine Urobilinogen 0.2 (0.2) mg/dL Ur Leukocyte Esterase Small A (Negative) U Hyaline Cast (Auto) 3-5 A (0-2) /LPF Urine Microscopic RBC 0-2 (0-5) /HPF Urine Microscopic WBC 11-20 A (0-5) /HPF Ur Epithelial Cells Few (None Seen) /HPF Urine Bacteria Moderate A (None Seen) /HPF Urine Culture Reflexed YES (NO) 11/29/24 Range/Units 17:46 WBC (3.98-10.04) x10^3/uL RBC (3.93-5.22) x10^6/uL Hgb (11.2-15.7) g/dL Hct (34.1-44.9) % MCV (79.4-94.8) fL MCH (25.6-32.2) pg MCHC (32.2-35.5) g/dL RDW (11.7-14.4) % Plt Count (182-369) x10^3/uL MPV (9.4-12.3) fL Gran % (34.0-71.1) % Immature Gran % (Auto) (0.001-0.429) % Nucleat RBC Rel Count (0.00-0.2) % Eos # (Auto) (0.04-0.36) x10^3/uL Immature Gran # (Auto) (0.001-0.031) x10^3u/L Absolute Lymphs (auto) (1.18-3.74) x10^3/uL Absolute Monos (auto) (0.24-0.86) x10^3/uL Absolute Nucleated RBC (0.00-0.012) x10^3u/L Lymphocytes % (19.3-51.7) % Monocytes % (4.7-12.5) % Eosinophils % (0.7-5.8) % Basophils % (0.1-1.2) % Absolute Granulocytes (1.56-6.13) x10^3/uL Basophils # (0.01-0.08) x10^3/uL Sodium (135-145) mmol/L Potassium (3.5-5.1) mmol/L Chloride (98-107) mmol/L Carbon Dioxide (22-30) mmol/L Anion Gap (5-15) MEQ/L BUN (7-17) mg/dL Creatinine (0.52-1.04) mg/dL Estimated GFR ML/MIN Glucose (74-106) mg/dL Lactic Acid 2.0 (0.4-2.0) Calcium (8.4-10.2) mg/dL Total Bilirubin (0.2-1.3) mg/dL AST (14-36) U/L ALT (0-35) U/L Alkaline Phosphatase (38-126) U/L Serum Total Protein (6.3-8.2) g/dL Albumin (3.5-5.0) g/dL Urine Color (Yellow) Urine Appearance (Clear) Urine pH (4.6-8.0) Ur Specific [place] (1.005-1.030) Urine Protein (Negative) Urine Glucose (UA) (Negative) mg/dL Urine Ketones (Negative) Urine Blood (Negative) Urine Nitrite (Negative) Urine Bilirubin (Negative) Urine Urobilinogen (0.2) mg/dL Ur Leukocyte Esterase (Negative) U Hyaline Cast (Auto) (0-2) /LPF Urine Microscopic RBC (0-5) /HPF Urine Microscopic WBC (0-5) /HPF Ur Epithelial Cells (None Seen) /HPF Urine Bacteria (None Seen) /HPF Urine Culture Reflexed (NO) - Progress Progress: improved Progress Note: Back due to exacerbation of chronic problem, no signs of infectious etiology of spinal nature at this time. UA shows UTI and patient also has a small draining abscess which is likely the source of her infection. Patient reports tolerating keflex in the past so she was placed on that to cover UTI and abscess. Strict return precautions given. Patient felt much better after IVF, pain meds and abx and was comfortable going home. Counseled pt/family regarding: lab results, diagnosis, need for follow-up Medical Desision Making - Diagnostic Testing Diagnostic test were ordered, analyzed, and reviewed by me: Yes Radiological Interpretation: Interpreted by me - Risk of complications The pt has a mod risk of morbidity or mortality based on: Need for prescription drug management - Departure Departure Disposition: Home Clinical Impression: UTI (urinary tract infection), Abscess of pubic region, Lumbago, History of back surgery Condition: Stable Critical Care Time: No Referrals: RENAE ROQUE MD [Primary Care Provider, [facility]] - Follow up/PCP as directed Instructions: Skin abscess, Skin abscess drainage - Discharge instructions, Urinary tract infection in adults - ED discharge instructions Prescriptions: Cephalexin Mh 500 mg [Keflex 500 mg] 500 mg PO TID 7 Days #21 cap
[2024-11-29 17:56] LABS: BASOPHIL % 0.3 % (0.1-1.2); Basophil (Absolute #) 0.06 x10^3/uL (0.01-0.08); Eosinophil (Absolute #) 0.06 x10^3/uL (0.04-0.36); Hematocrit 42.2 % (34.1-44.9); Hemoglobin 13.6 g/dL (11.2-15.7); IMMATURE GRAN # 0.09 x10^3u/L (0.001-0.031); IMMATURE GRAN % 0.5 % (0.001-0.429); Lymphocyte (Absolute #) 2.84 x10^3/uL (1.18-3.74); Mean Corpuscular Hemoglobin 28.1 pg (25.6-32.2); Mean Corpuscular Hgb Concent. 32.2 g/dL (32.2-35.5); Monocyte (Absolute #) 1.56 x10^3/uL (0.24-0.86); NUCLEATED RBC # 0.00 x10^3u/L (0.00-0.012); NUCLEATED RBC % 0.0 % (0.00-0.2); Platelet Count 391 x10^3/uL (182-369); Red Blood Count 4.84 x10^6/uL (3.93-5.22); White Blood Count 19.4 x10^3/uL (3.98-10.04)
[2024-11-29] MEDS ORDERED: Cyclobenzaprine 10 MG ONE (17:59)
[2024-11-29] MEDS ORDERED: KEFLEX 500 MG ONE (17:59)
[2024-11-29] MEDS ORDERED: NORCO 5/325 MG ONE (17:59)
[2024-11-29] MEDS: KEFLEX 500 MG PO ONE (18:00)
[2024-11-29] MEDS: Cyclobenzaprine 10 MG PO ONE (18:01)
[2024-11-29] MEDS: NORCO 5/325 MG PO ONE (18:01)
[2024-11-29 18:11] LABS: Calcium 9.6 mg/dL (8.4-10.2); Carbon Dioxide 24.0 mmol/L (22-30); Creatinine 1 0.78 mg/dL (0.52-1.04); EST GLOMERULAR FILTRATION RATE 96.6 ML/MIN; Glucose 128.0 mg/dL (74-106); Potassium 4.1 mmol/L (3.5-5.1); SGOT/AST 26.0 U/L (14-36); SGPT/ALT 25.0 U/L (0-35); Total Protein 7.8 g/dL (6.3-8.2)
[2024-11-29 18:36] LABS: Glucose, Urine Negative (Negative); Protein,Urine Dip Negative (Negative); RBC 0-2 /HPF (0-5)
[2024-11-29 18:43] VITALS: O2SAT 99
[2024-11-29 18:52] VITALS: BP 101/80; PULSE 78; RESP 16
== END 2024-11-29 18:52 | disposition home or self-care (01) ==
LOC: ED 17:07
DX: N39.0 Urinary tract infection, site not specified (principal); L02.215 Cutaneous abscess of perineum; M54.50 Low back pain, unspecified; Z98.890 Other specified postprocedural states; R50.9 Fever, unspecified; I10 Essential (primary) hypertension; E11.9 Type 2 diabetes mellitus without complications; Z79.899 Other long term (current) drug therapy